=== PATIENT | male | born 1955 | race Caucasian/White ===

== ENCOUNTER 2017-05-11 14:30 | Outpatient (RCR) | payer OTHER, SELFPAY ==
[2017-05-04 14:49] VITALS: BP 141/74; PULSE 61; RESP 16; TEMP 36
[2017-05-04 17:38] LABS: Absolute Lymphocyte Count 1.75 X10^3/ul (0.83-4.51); Absolute Neutrophil Count 5.1 X10^3/uL (2.0-7.7); Basophil# 0.02 X10^3/uL; Basophil% 0.3 % (0-1); Eosinophil# 0.18 X10^3/uL; Eosinophils% 2.4 % (0-5); Hematocrit 47.9 % (40-54); Hemoglobin 16.2 g/dl (13.0-16.5); Lymphocyte # 1.75 X10^3/ul (4.0); Lymphocyte % 23.2 % (19-41); Mean Corp Hgb Conc 33.8 g/gl (32-36); Mean Corpuscular Hgb 28.9 pg (27.0-32.0); Mean Corpuscular Volume 85.4 fL (80-94); Mean Platelet Vol. 9.7 fl (6.2-12.0); Monocyte# 0.52 X10^3/uL; Monocyte% 6.9 % (0-10); Neutrophil # 5.07 X10^3/uL (2.7-7.7); Neutrophil % 67.1 % (47-70); Platelet Count 191 K/mm3 (150-450); RBC Distribution Width CV 14.4 % (11.6-14.6); RBC Distribution Width SD 44.8 fl (35.1-43.9); Red Blood Count 5.61 M/mm3 (4.6-6.2); White Blood Count 7.6 K/mm3 (4.4-11.0)
[2017-05-04 17:40] LABS: POSITIVE COUNT NO; POSITIVE DIFFERENTIAL NO; POSITIVE MORPHOLOGY NO
[2017-05-04 17:53] LABS: ALB/GLOB Ratio 0.9 RATIO (0.9-2.4); AST(SGOT) 34 U/L (15-37); Alanine Aminotransfer ALT/SGPT 36 U/L (12-78); Albumin, Serum 3.7 g/dL (3.4-5.0); Alkaline Phosphatase 297 U/L (45-117); Anion Gap 10 (5-15); BUN 21 mg/dL (7-18); BUN/Creat Ratio 25.6 RATIO (10-20); Calcium,Total 9.3 mg/dL (8.5-10.1); Chloride 98 mmol/L (98-107); Creatinine, Serum 0.82 mg/dL (0.70-1.30); EST Glomerular Filtration Rate 102 mL/min (>60); Est Glom Filt Rate - Afr Amer 123 mL/min (>60); Globulin 4.1 g/dL (2.2-4.2); Glucose 164 mg/dL (70-110); Potassium 3.3 mmol/L (3.5-5.1); Prealbumin 24.5 mg/dL (20.0-40.0); Protein, Total 7.8 g/dL (6.4-8.2); Sodium Level 136 mmol/L (136-145)
[2017-05-04 17:57] LABS: Hemoglobin A1c 9.7 % (4.2-6.3)
--- NOTE | 2017-05-04 22:11 | PCM.WC.HP ---
(1) Chronic ulcer of left foot with fat layer exposed Status: Chronic Code(s): L97.522 - Non-pressure chronic ulcer of other part of left foot with fat layer exposed (2) Hallux limitus of left foot Status: Chronic Code(s): M20.5X2 - Other deformities of toe(s) (acquired), left foot (3) Rheumatoid arthritis Status: Chronic Code(s): M06.9 - Rheumatoid arthritis, unspecified (4) Prostate cancer Status: Chronic Code(s): C61 - Malignant neoplasm of prostate (5) Delayed wound healing Status: Chronic Code(s): T14.8XXD - Other injury of unspecified body region, subsequent encounter (6) Malnutrition Status: Suspected Code(s): E46 - Unspecified protein-calorie malnutrition History of Present Illness Date of Service: 05/11/17 Chief Complaint: Left foot ulcer History of Wound: This 61-year-old male presents today for chronic left foot ulcer with an onset of 6 months ago (10/30). He denies sensation to the foot or associated pain. It is draining a clear bloody drainage. He is trying to keep it clean on his own at home. He recently saw a child and family counselor at [facility] was performed debridement, applied a wound VAC, offload the wound with a wedge forefoot rocker shoe and educated him on this condition. He was referred to the wound center for consideration of advanced product and additional workup. He had previous labs done over a month ago and had a recent x-ray performed at the [facility] approximately 1 week ago. He denies history of other ulcers. He denies claudication. He relates she does not walk very often and has been trying to stay seated at home to keep pressure off of his ulcer site. Past Medical History Past Medical History: Chronic Problems Chronic ulcer of left foot with fat layer exposed (Chronic) Hallux limitus of left foot (Chronic) Rheumatoid arthritis (Chronic) Prostate cancer (Chronic) Delayed wound healing (Chronic) Past Medical History: Prostate cancer with liver and sacral metastasis on chemotherapy, diabetes, rheumatoid arthritis on chronic prednisone, depression, hypercholesteremia. Other treating physicians: Dr. Vazquez, Dr. Olvera, Dr. Singh Surgical History: - - cataract extraction, colonoscopy, prostatectomy, removal of tonsils, vasectomy Allergies/Adverse Reactions: Allergies No Known Allergies Allergy (Verified 12/20/17 16:05) Home Medications: Ambulatory Orders Medication Instructions Recorded Calcium Carb/Vitamin D3/Vit K1 05/04/17 [Citracal Soft Chew] Empagliflozin [Jardiance] 10 mg PO 05/04/17 Glipizide/Metformin HCl 1 each PO 05/04/17 [Glipizide-Metformin 5-500 mg] Ibuprofen 200 mg PO 05/04/17 Multivitamin [Multiple Vitamins] 1 each PO DAILY 05/04/17 Prednisone 5 mg PO 05/04/17 Rosuvastatin Calcium [Crestor] 20 mg PO 05/04/17 Venlafaxine XR [Effexor Xr] 75 mg PO DAILY 05/04/17 Lives: Spouse/ Significant Other Review of Systems Constitutional: Denies: Chills, Fever, Fatigue Eyes: Reports: Vision Change Cardiovascular: Denies: Chest Pain, Claudication Respiratory: Denies: Shortness of Breath Gastrointestinal: Denies: Nausea, Vomiting Genitourinary: Reports: Incontinence, Urgency Musculoskeletal: Denies: Foot Pain, Joint swelling, Leg Pain Skin: Reports: Skin Changes, Wounds Neurological: Reports: Numbness Hematologic/ Lymphatic: Reports: Hx of blood clot - Physical Exam Vital Signs Temp Pulse Resp BP 96.8 F L 61 16 141/74 H 05/04/17 14:49 05/04/17 14:49 05/04/17 14:49 05/04/17 14:49 General: Alert, Oriented x3, Cooperative HEENT: Atraumatic Extremities: No edema, Capillary Refill Less than 3 Seconds - All digits bilateral foot, No Calf Tenderness - Negative Mingo and Garcia sign bilateral, Diminished Peripheral Pulses Skin: Ulcer/ Wound - Some first metatarsal head ulcer with granular base and peripheral callus. There is no probe to the sesamoid bones or other joints. Her sinus drainage is noted. No maceration, no erythema, no streaking, no infection, no necrosis noted left foot. Otherwise his skin is atrophic care with bilateral lower extremity Wound Measurements and Assessment WC - Nurse 1 - General Ulcer Measurement Start: 05/04/17 13:42 Freq: Status: Active Protocol: Activity Type Activity Date Activity User E-Sign Co-Sign Detail Recorded Client Recorded Date Recorded By Document 05/04/17 14:49 DV [id number] 05/04/17 15:13 DV 05/04/17 14:49 Wound Center Nurse 1 [Ulcer Assessment Protocol: WC.WD.LOC] #1 1st Metatarsal Head - Plantar -Combined with other wound No -Current Size (cm) - Length 1.0 -Current Size (cm) - Width 1.0 -Current Size (cm) - Depth 0.7 -Total Square Cm 1.00 -Date of Last Picture (Recall this 05/04/17 field) -Photo Taken Yes -Tunneling No -Undermining/Tunneling No -Circular Undermining No -Classification - Stark Grading ( Grade 2 Diabetic Ulcer) -Exudate Amt Small (1-33%) -Exudate Type Serous -Wound Margin Distinct, Outline Attached -Granulation Amt Small (1-33%) -Granulation Quality Red -Slough/Fibrin Yes -Necrosis Amt Medium (34-66%) -Necrotic Tissue Type Adherent Slough -Structure Exposed None/Limited to Skin Breakdown -Texture (Mar-wound Skin Appearance) No Abnormality Assessed -Moisture (Mar-wound Skin Appearance No Abnormality ) Assessed -Color (Mar-wound Skin Appearance) No Abnormality Assessed -Temperature (Mar-wound Skin Cool/Cold Appearance) -Tenderness on Palpation (Mar-wound No Skin Appearance) -Ulcer Cleansing Rinsed/ Irrigated with Saline -Foul Odor after Cleansing No -Anesthetic Used 5% Lidocaine Gel [Edema Assessment] -Lower Limb Edema Present No - Nurse 2 - General Ulcer CM Notes Start: 05/04/17 13:42 Freq: Status: Active Protocol: Activity Type Activity Date Activity User E-Sign Co-Sign Detail Recorded Client Recorded Date Recorded By Document 05/04/17 15:39 [id number] 05/04/17 16:22 05/04/17 15:39 Wound Center Nurse 2 [Procedure/Treatment] #1 1st Metatarsal Head - Plantar -Time 15:54 -Correct Patient Yes -Correct Side, Site, Position Yes -Correct Procedure Yes -Procedure Performed Yes -Type of Procedure Debridement -Clinical Debridement Subcutaneous -Post Debridement Size (cm) - Length 1.1 -Post Debridement Size (cm) - Width 1.5 -Post Debridement Size (cm) - Depth 1.0 -Total Square Cm 1.65 -Wound/Ulcer Outcome Not Healed -Ulcer Cleansing Rinsed/ Irrigated with Saline -Foul Odor after Cleansing No -Bioengineered Tissue No -Cetacaine Maurepas No -Topical Lidocaine (%) 5 -Bleeding Controlled with Pressure -Treatment Response Procedure Tolerated Well [See Physician Procedure note for Specifics] Pain Scale: 0-10 Numeric [Pain] -Is Patient Pain Free? Yes Musculoskeletal: No Tenderness to Palpation of Joints or Extremities, Muscle Wasting, - - Decreased loaded and unloaded range of motion of the first metatarsal phalangeal joint of the left foot. No crepitus on palpation. The compartments of the left foot and ankle remain soft. Neurological: - - Lack of epicritic sensation to light touch noted left foot Psych/Mental Status: Normal Affect, Appropriate Debridement Note Post-Debridement Measurements/Treatment WC - Nurse 2 - General Ulcer CM Notes Start: 05/04/17 13:42 Freq: Status: Active Protocol: Activity Type Activity Date Activity User E-Sign Co-Sign Detail Recorded Client Recorded Date Recorded By Document 05/04/17 15:39 [id number] 05/04/17 16:22 05/04/17 15:39 Wound Center Nurse 2 #1 1st Metatarsal Head - Plantar -Time 15:54 -Correct Patient Yes -Correct Side, Site, Position Yes -Correct Procedure Yes -Procedure Performed Yes -Type of Procedure Debridement -Clinical Debridement Subcutaneous -Post Debridement Size (cm) - Length 1.1 -Post Debridement Size (cm) - Width 1.5 -Post Debridement Size (cm) - Depth 1.0 -Total Square Cm 1.65 -Wound/Ulcer Outcome Not Healed -Ulcer Cleansing Rinsed/ Irrigated with Saline -Foul Odor after Cleansing No -Bioengineered Tissue No -Cetacaine Maurepas No -Topical Lidocaine (%) 5 -Bleeding Controlled with Pressure -Treatment Response Procedure Tolerated Well Pain Scale: 0-10 Numeric Is Patient Pain Free? Yes Wound debrided: Sub-first metatarsal head ulcer Laterality: Left Wound Grade/Stage: Grade 1 Type of Debridement: Excisional debridement Anesthesia Used: 4% Lidocaine Solution Depth: in the subcutaneous layer Percentage of wound debrided: 100 Instrument Used: #15 blade Tissue Removed: Fibrous, devitalized subcutaneous, biofilm, slough Severity: Fat Layer Exposed Amount of bleeding with debridement: Mild Bleeding Controlled with: Pressure Patient tolerated procedure well Assessment/Plan Assessment: Sub-first metatarsal head ulcer left foot. Diabetes. Delayed healing. Cancer undergoing current therapy. Hallux limitus left Plan: I reviewed and discussed his care plan. I reviewed his previous podiatry notes with clinical clinic. I requested his most recent x-ray images from the [facility] via mail and it is noted that his most recent x-ray report is not just osteomyelitis changes to left foot. This was reviewed from 04/26/17; serial films will be needed next month or if there is a status change. Labs including CMP and CBC are ordered and pending. The wound is chronic in nature and I recommended tissue culture at this time; this was obtained including aerobic, anaerobic, acid-fast, fungal, and MRSA PCR. To continue with wound VAC at this time to decrease depth. He changed to a collagen dressing and likely advanced wound care product such as epi-fix will be considered upon preauthorization and healing response. Strict offloading was recommended. I recommend continuing the forefoot wedge offloading shoe. An additional pocket cut out was fabricated today in the minor with the addition of the felt padding with an additional cut out; this lined up well to offload the ulcer site. To avoid barefoot walking at home. I recommended continuous nutritional optimization to promote healing. A prescription for David nutritional supplement was also provided today. Neutrophil healing resulting time were discussed in detail. He understands he is at risk for limb loss. I answered all of his questions. Return to clinic in 1 week or call sooner if he has any questions or concerns.
[2017-05-05 10:09] LABS: M R Staph aureus DNA By PCR Negative (Negative); Probe Check PASS; Specimen Processing Control PASS; Staph aureus DNA By PCR NEGATIVE (Negative)
[2017-05-11 14:02] VITALS: BP 119/69; PULSE 75; RESP 16; TEMP 35.4
--- NOTE | 2017-05-11 18:19 | PCM.WC.PN ---
(1) Chronic ulcer of left foot with fat layer exposed Status: Chronic Current Visit: No Code(s): L97.522 - Non-pressure chronic ulcer of other part of left foot with fat layer exposed (2) Hallux limitus of left foot Status: Chronic Current Visit: No Code(s): M20.5X2 - Other deformities of toe(s) (acquired), left foot (3) Rheumatoid arthritis Status: Chronic Current Visit: No Code(s): M06.9 - Rheumatoid arthritis, unspecified (4) Prostate cancer Status: Chronic Current Visit: No Code(s): C61 - Malignant neoplasm of prostate (5) Delayed wound healing Status: Chronic Current Visit: No Code(s): T14.8XXD - Other injury of unspecified body region, subsequent encounter (6) Malnutrition Status: Suspected Current Visit: No Code(s): E46 - Unspecified protein-calorie malnutrition (7) Infection of left foot Status: Suspected Current Visit: Yes Code(s): L08.9 - Local infection of the skin and subcutaneous tissue, unspecified Type of Wound Date of Service: 05/11/17 Chief Complaint: Left foot ulcer History of Wound: This 61-year-old male presents today for chronic left foot ulcer with an onset of 6 months ago (10/30). He has been compliant with the wound VAC this past week. He denies fever, chill, nausea, vomiting, or foot pain. He is compliant with an offloading forefoot wedge shoe. He obtained vascular studies is advised. Progress of Wound: Stable - Physical Exam Vital Signs Temp Pulse Resp BP 95.7 F L 75 16 119/69 05/11/17 14:02 05/11/17 14:02 05/11/17 14:02 05/11/17 14:02 General: Alert, Oriented x3, Cooperative Extremities: No cyanosis, Capillary Refill Less than 3 Seconds - All digits left foot, No Calf Tenderness - Negative Mingo and Garcia sign bilateral, Diminished Peripheral Pulses - Palpable DP pulse left, - - Decreased first metatarsophalangeal joint passive range of motion loaded and unloaded left foot Skin: Ulcer/ Wound - No purulence, no erythema, no streaking, no odor, no probe to bone, no necrosis, no acute infection. There is a scant odor. The base is granular and with peripheral callus. The adjacent skin is atrophic and hairless. Wound Measurements and Assessment - Nurse 1 - General Ulcer Measurement Start: 05/04/17 13:42 Freq: Status: Active Protocol: Activity Type Activity Date Activity User E-Sign Co-Sign Detail Recorded Client Recorded Date Recorded By Document 05/11/17 14:02 MW [id number] 05/11/17 14:12 MW 05/11/17 14:02 Wound Center Nurse 1 [Ulcer Assessment Protocol: KAVITA.WD.LOC] #3 Left: 1st Metatarsal Head - Plantar -Combined with other wound No -Current Size (cm) - Length 1.0 -Current Size (cm) - Width 1.4 -Current Size (cm) - Depth 0.7 -Total Square Cm 1.40 -Photo Taken No -Epithelialization None Present -Tunneling No -Undermining/Tunneling No -Circular Undermining No -Exudate Amt Small (1-33%) -Exudate Type Serosanguineous -Wound Margin Distinct, Outline Attached -Granulation Amt Small (1-33%) -Granulation Quality [place] -Slough/Fibrin Yes -Necrosis Amt Medium (34-66%) -Necrotic Tissue Type Adherent Slough -Structure Exposed N/A -Texture (Mar-wound Skin Appearance) No Abnormality Assessed -Moisture (Mar-wound Skin Appearance Assessed ) Maceration -Color (Mar-wound Skin Appearance) No Abnormality Assessed -Temperature (Mar-wound Skin No Abnormality Appearance) (Pt Warm) -Tenderness on Palpation (Mar-wound No Skin Appearance) -Ulcer Cleansing Rinsed/ Irrigated with Saline -Foul Odor after Cleansing No -Anesthetic Used 4% Lidocaine Solution [Edema Assessment] -Lower Limb Edema Present No - Nurse 2 - General Ulcer CM Notes Start: 05/04/17 13:42 Freq: Status: Active Protocol: Activity Type Activity Date Activity User E-Sign Co-Sign Detail Recorded Client Recorded Date Recorded By Document 05/11/17 14:35 [id number] 05/11/17 14:35 05/11/17 14:35 Wound Center Nurse 2 [Procedure/Treatment] #3 Left: 1st Metatarsal Head - Plantar -Time 14:35 -Correct Patient Yes -Correct Side, Site, Position Yes -Correct Procedure Yes -Procedure Performed Yes -Type of Procedure Debridement -Clinical Debridement Subcutaneous -Post Debridement Size (cm) - Length 1.0 -Post Debridement Size (cm) - Width 1.5 -Post Debridement Size (cm) - Depth 0.7 -Total Square Cm 1.50 -Wound/Ulcer Outcome Not Healed -Ulcer Cleansing Rinsed/ Irrigated with Saline -Foul Odor after Cleansing No -Bioengineered Tissue No -Cetacaine [place] No -Bleeding Controlled with Pressure -Treatment Response Procedure Tolerated Well [See Physician Procedure note for Specifics] Pain Scale: 0-10 Numeric [Pain] -Is Patient Pain Free? Yes Musculoskeletal: No Tenderness to Palpation of Joints or Extremities, Muscle Wasting, - - No pain with wound manipulation or debridement Neurological: - - Lack of epicritic sensation to light touch left foot Psych/Mental Status: Normal Affect, Appropriate Debridement Note Post-Debridement Measurements/Treatment WC - Nurse 2 - General Ulcer CM Notes Start: 05/04/17 13:42 Freq: Status: Active Protocol: Activity Type Activity Date Activity User E-Sign Co-Sign Detail Recorded Client Recorded Date Recorded By Document 05/04/17 15:39 [id number] 05/04/17 16:22 Document 05/11/17 14:35 [id number] 05/11/17 14:35 05/04/17 05/11/17 15:39 14:35 Wound Center Nurse 2 #3 Left: 1st Metatarsal Head - Plantar -Time 15:54 14:35 -Correct Patient Yes Yes -Correct Side, Site, Position Yes Yes -Correct Procedure Yes Yes -Procedure Performed Yes Yes -Type of Procedure Debridement Debridement -Clinical Debridement Subcutaneous Subcutaneous -Post Debridement Size (cm) - Length 1.1 1.0 -Post Debridement Size (cm) - Width 1.5 1.5 -Post Debridement Size (cm) - Depth 1.0 0.7 -Total Square Cm 1.65 1.50 -Wound/Ulcer Outcome Not Healed Not Healed -Ulcer Cleansing Rinsed/ Rinsed/ Irrigated with Irrigated with Saline Saline -Foul Odor after Cleansing No No -Bioengineered Tissue No No -Cetacaine [place]or No No -Topical Lidocaine (%) 5 -Bleeding Controlled with Pressure Pressure -Treatment Response Procedure Procedure Tolerated Well Tolerated Well Pain Scale: 0-10 Numeric Is Patient Pain Free? Yes Yes Wound debrided: Sub-first metatarsal head Laterality: Left Wound Grade/Stage: Grade 1 Type of Debridement: Excisional debridement Anesthesia Used: 4% Lidocaine Solution Depth: in the subcutaneous layer Percentage of wound debrided: 100 Instrument Used: 7mm curette Tissue Removed: Fibrous, devitalized subcutaneous, biofilm, slough Severity: Fat Layer Exposed Amount of bleeding with debridement: Mild Bleeding Controlled with: Pressure Patient tolerated procedure well Assessment/Plan Assessment: Sub-first metatarsal head ulcer left foot. Contamination versus mild infection left foot. Diabetes. Delayed healing. Cancer undergoing current therapy. Hallux limitus left. Malnutrition suspected Plan: I reviewed and discussed his care plan. Serial x-ray films and laboratory tests will be needed next month or if there is a status change. I reviewed his noninvasive vascular studies which demonstrated triphasic waveforms, normal CEDRIC and toe brachial indices bilateral. I reviewed his culture results which demonstrated staph, strep, and Pseudomonas. I recommend daily Hibiclens wash to the lower extremity including the wound; this is demonstrated today to assist with decolonization which could be impeding healing. I also provided a 14 day supply of Augmentin to address this ; he was advised on safe and proper use. To discontinue wound VAC. He changed to a collagen dressing (saman) and likely advanced wound care product such as epi-fix will be considered upon preauthorization and healing response. Strict offloading was recommended. I recommend continuing the forefoot wedge offloading shoe. To avoid barefoot walking at home. I recommended continuous nutritional optimization to promote healing. A prescription for David nutritional supplement was also provided last week. Return to clinic in 1 week or call sooner if he has any questions or concerns. I answered all of his questions.
--- NOTE | 2017-05-11 18:26 | PN.PCM_ITS ---
(1) Chronic ulcer of left foot with fat layer exposed Status: Chronic Current Visit: No Code(s): L97.522 - Non-pressure chronic ulcer of other part of left foot with fat layer exposed (2) Hallux limitus of left foot Status: Chronic Current Visit: No Code(s): M20.5X2 - Other deformities of toe(s) (acquired), left foot (3) Rheumatoid arthritis Status: Chronic Current Visit: No Code(s): M06.9 - Rheumatoid arthritis, unspecified (4) Prostate cancer Status: Chronic Current Visit: No Code(s): C61 - Malignant neoplasm of prostate (5) Delayed wound healing Status: Chronic Current Visit: No Code(s): T14.8XXD - Other injury of unspecified body region, subsequent encounter (6) Malnutrition Status: Suspected Current Visit: No Code(s): E46 - Unspecified protein- calorie malnutrition (7) Infection of left foot Status: Suspected Current Visit: Yes Code(s): L08.9 - Local infection of the skin and subcutaneous tissue, unspecified Type of Wound Date of Service: 05/11/17 Chief Complaint: Left foot ulcer History of Wound: This 61-year-old male presents today for chronic left foot ulcer with an onset of 6 months ago (10/30). He has been compliant with the wound VAC this past week. He denies fever, chill, nausea, vomiting, or foot pain. He is compliant with an offloading forefoot wedge shoe. He obtained vascular studies is advised. Progress of Wound: Stable - Physical Exam Vital Signs Temp Pulse Resp BP 95.7 F L 75 16 119/69 05/11/17 14:02 05/11/17 14:02 05/11/17 14:02 05/11/17 14:02 General: Alert, Oriented x3, Cooperative Extremities: No cyanosis, Capillary Refill Less than 3 Seconds - All digits left foot, No Calf Tenderness - Negative Mingo and Garcia sign bilateral, Diminished Peripheral Pulses - Palpable DP pulse left, - - Decreased first metatarsophalangeal joint passive range of motion loaded and unloaded left foot Skin: Ulcer/ Wound - No purulence, no erythema, no streaking, no odor, no probe to bone, no necrosis, no acute infection. There is a scant odor. The base is granular and with peripheral callus. The adjacent skin is atrophic and hairless. Wound Measurements and Assessment - Nurse 1 - General Ulcer Measurement Start: 05/04/17 13:42 Freq: Status: Active Protocol: Activity Type Activity Date Activity User E-Sign Co-Sign Detail Recorded Client Recorded Date Recorded By Document 05/11/17 14:02 MW [id number] 05/11/17 14:12 MW 05/11/17 14:02 Wound Center Nurse 1 [Ulcer Assessment Protocol: AKVITA.WD.LOC] #3 Left: 1st Metatarsal Head - Plantar -Combined with other wound No -Current Size (cm) - Length 1.0 -Current Size (cm) - Width 1.4 -Current Size (cm) - Depth 0.7 -Total Square Cm 1.40 -Photo Taken No -Epithelialization None Present -Tunneling No -Undermining/Tunneling No -Circular Undermining No -Exudate Amt Small (1-33%) -Exudate Type Serosanguineous -Wound Margin Distinct, Outline Attached -Granulation Amt Small (1-33%) -Granulation Quality [place] -Slough/Fibrin Yes -Necrosis Amt Medium (34-66%) -Necrotic Tissue Type Adherent Slough -Structure Exposed N/A -Texture (Mar-wound Skin Appearance) No Abnormality Assessed -Moisture (Mar-wound Skin Appearance Assessed ) Maceration -Color (Mar-wound Skin Appearance) No Abnormality Assessed -Temperature (Mar-wound Skin No Abnormality Appearance) (Pt Warm) -Tenderness on Palpation (Mar-wound No Skin Appearance) -Ulcer Cleansing Rinsed/ Irrigated with Saline -Foul Odor after Cleansing No -Anesthetic Used 4% Lidocaine Solution [Edema Assessment] -Lower Limb Edema Present No - Nurse 2 - General Ulcer CM Notes Start: 05/04/17 13:42 Freq: Status: Active Protocol: Activity Type Activity Date Activity User E-Sign Co-Sign Detail Recorded Client Recorded Date Recorded By Document 05/11/17 14:35 [id number] 05/11/17 14:35 05/11/17 14:35 Wound Center Nurse 2 [Procedure/Treatment] #3 Left: 1st Metatarsal Head - Plantar -Time 14:35 -Correct Patient Yes -Correct Side, Site, Position Yes -Correct Procedure Yes -Procedure Performed Yes -Type of Procedure Debridement -Clinical Debridement Subcutaneous -Post Debridement Size (cm) - Length 1.0 -Post Debridement Size (cm) - Width 1.5 -Post Debridement Size (cm) - Depth 0.7 -Total Square Cm 1.50 -Wound/Ulcer Outcome Not Healed -Ulcer Cleansing Rinsed/ Irrigated with Saline -Foul Odor after Cleansing No -Bioengineered Tissue No -Cetacaine [place] No -Bleeding Controlled with Pressure -Treatment Response Procedure Tolerated Well [See Physician Procedure note for Specifics] Pain Scale: 0-10 Numeric [Pain] -Is Patient Pain Free? Yes Musculoskeletal: No Tenderness to Palpation of Joints or Extremities, Muscle Wasting, - - No pain with wound manipulation or debridement Neurological: - - Lack of epicritic sensation to light touch left foot Psych/Mental Status: Normal Affect, Appropriate Debridement Note Post-Debridement Measurements/Treatment WC - Nurse 2 - General Ulcer CM Notes Start: 05/04/17 13:42 Freq: Status: Active Protocol: Activity Type Activity Date Activity User E-Sign Co-Sign Detail Recorded Client Recorded Date Recorded By Document 05/04/17 15:39 [id number] 05/04/17 16:22 Document 05/11/17 14:35 [id number] 05/11/17 14:35 05/04/17 05/11/17 15:39 14:35 Wound Center Nurse 2 #3 Left: 1st Metatarsal Head - Plantar -Time 15:54 14:35 -Correct Patient Yes Yes -Correct Side, Site, Position Yes Yes -Correct Procedure Yes Yes -Procedure Performed Yes Yes -Type of Procedure Debridement Debridement -Clinical Debridement Subcutaneous Subcutaneous -Post Debridement Size (cm) - Length 1.1 1.0 -Post Debridement Size (cm) - Width 1.5 1.5 -Post Debridement Size (cm) - Depth 1.0 0.7 -Total Square Cm 1.65 1.50 -Wound/Ulcer Outcome Not Healed Not Healed -Ulcer Cleansing Rinsed/ Rinsed/ Irrigated with Irrigated with Saline Saline -Foul Odor after Cleansing No No -Bioengineered Tissue No No -Cetacaine [place] No No -Topical Lidocaine (%) 5 -Bleeding Controlled with Pressure Pressure -Treatment Response Procedure Procedure Tolerated Well Tolerated Well Pain Scale: 0-10 Numeric Is Patient Pain Free? Yes Yes Wound debrided: Sub-first metatarsal head Laterality: Left Wound Grade/Stage: Grade 1 Type of Debridement: Excisional debridement Anesthesia Used: 4% Lidocaine Solution Depth: in the subcutaneous layer Percentage of wound debrided: 100 Instrument Used: 7mm curette Tissue Removed: Fibrous, devitalized subcutaneous, biofilm, slough Severity: Fat Layer Exposed Amount of bleeding with debridement: Mild Bleeding Controlled with: Pressure Patient tolerated procedure well Assessment/Plan Assessment: Sub-first metatarsal head ulcer left foot. Contamination versus mild infection left foot. Diabetes. Delayed healing. Cancer undergoing current therapy. Hallux limitus left. Malnutrition suspected Plan: I reviewed and discussed his care plan. Serial x-ray films and laboratory tests will be needed next month or if there is a status change. I reviewed his noninvasive vascular studies which demonstrated triphasic waveforms, normal CEDRIC and toe brachial indices bilateral. I reviewed his culture results which demonstrated staph, strep, and Pseudomonas. I recommend daily Hibiclens wash to the lower extremity including the wound; this is demonstrated today to assist with decolonization which could be impeding healing. I also provided a 14 day supply of Augmentin to address this ; he was advised on safe and proper use. To discontinue wound VAC. He changed to a collagen dressing (saman) and likely advanced wound care product such as epi- fix will be considered upon preauthorization and healing response. Strict offloading was recommended. I recommend continuing the forefoot wedge offloading shoe. To avoid barefoot walking at home. I recommended continuous nutritional optimization to promote healing. A prescription for David nutritional supplement was also provided last week. Return to clinic in 1 week or call sooner if he has any questions or concerns. I answered all of his questions.
--- NOTE | 2017-05-16 09:41 | LEAS ---
Arterial Study - Arterial Study Arterial Study: This is a 61-year-old male who presents with a history of diabetes mellitus and hyperlipidemia. He presents with a chronic nonhealing ulcer to the left lower extremity. Suspecting the presence of peripheral arterial occlusive disease, the patient was brought to the noninvasive vascular laboratory at this time for the purpose of bilateral noninvasive lower extremity arterial assessment. Doppler signal assessment was used to evaluate the pulses at ankle level bilaterally. The posterior tibial and dorsalis pedis pulses were triphasic bilaterally. Segmental limb pressures were obtained bilaterally. The right ankle pressure, as determined by posterior tibial pulse, was measured at 163 mmHg. The right ankle pressure, as determined by dorsalis pedis pulse, was measured at 169 mmHg. The right digital pressure was measured at 102 mmHg. The left ankle pressure, as determined by posterior tibial pulse, was measured at 169 mmHg. The left ankle pressure, as determined by dorsalis pedis pulse, was measured at 174 mmHg. The left digital pressure was measured at 115 mmHg. Pulse-volume recordings were obtained bilaterally and segmentally. Waveform amplitudes appeared to be satisfactory at all levels bilaterally, including low thigh, calf, ankle, and digital levels, but for the right digital level, which was slightly diminished. Resting ankle-brachial indices were calculated bilaterally. The resting right ankle-brachial index was calculated to be 1.20. The resting left ankle-brachial index was calculated to be 1.23. Digital-brachial indices were calculated bilaterally. The right digital-brachial index was calculated to be 0.72. The left digital-brachial index was calculated to be 0.82. Impression: Based upon the findings of this resting noninvasive left lower extremity arterial study, there is no evidence of significant atherosclerotic peripheral arterial occlusive disease in the lower extremities bilaterally. Triphasic waveforms were noted at ankle level bilaterally. Resting ankle-brachial indices were bilaterally normal. Digital-brachial indices were also normal bilaterally. In summary, this represents a relatively normal resting noninvasive lower extremity arterial study bilaterally.
--- NOTE | 2017-05-16 09:44 | LEAS_ITS ---
Arterial Study - Arterial Study Arterial Study: This is a 61-year-old male who presents with a history of diabetes mellitus and hyperlipidemia. He presents with a chronic nonhealing ulcer to the left lower extremity. Suspecting the presence of peripheral arterial occlusive disease, the patient was brought to the noninvasive vascular laboratory at this time for the purpose of bilateral noninvasive lower extremity arterial assessment. Doppler signal assessment was used to evaluate the pulses at ankle level bilaterally. The posterior tibial and dorsalis pedis pulses were triphasic bilaterally. Segmental limb pressures were obtained bilaterally. The right ankle pressure, as determined by posterior tibial pulse, was measured at 163 mmHg. The right ankle pressure, as determined by dorsalis pedis pulse, was measured at 169 mmHg. The right digital pressure was measured at 102 mmHg. The left ankle pressure, as determined by posterior tibial pulse, was measured at 169 mmHg. The left ankle pressure, as determined by dorsalis pedis pulse, was measured at 174 mmHg. The left digital pressure was measured at 115 mmHg. Pulse-volume recordings were obtained bilaterally and segmentally. Waveform amplitudes appeared to be satisfactory at all levels bilaterally, including low thigh, calf, ankle, and digital levels, but for the right digital level, which was slightly diminished. Resting ankle-brachial indices were calculated bilaterally. The resting right ankle-brachial index was calculated to be 1.20. The resting left ankle- brachial index was calculated to be 1.23. Digital-brachial indices were calculated bilaterally. The right digital- brachial index was calculated to be 0.72. The left digital-brachial index was calculated to be 0.82. Impression: Based upon the findings of this resting noninvasive left lower extremity arterial study, there is no evidence of significant atherosclerotic peripheral arterial occlusive disease in the lower extremities bilaterally. Triphasic waveforms were noted at ankle level bilaterally. Resting ankle- brachial indices were bilaterally normal. Digital-brachial indices were also normal bilaterally. In summary, this represents a relatively normal resting noninvasive lower extremity arterial study bilaterally.
== END 2017-05-15 23:59 ==
LOC: WC 14:30
PROVIDERS: Family Provider Family Medicine; PCP Family Medicine; Visit Provider Podiatrist
DX: E11.621 Type 2 diabetes mellitus with foot ulcer (principal); E11.42 Type 2 diabetes mellitus with diabetic polyneuropathy; L97.522 Non-pressure chronic ulcer of other part of left foot with fat layer exposed; M20.5X2 Other deformities of toe(s) (acquired), left foot; M06.9 Rheumatoid arthritis, unspecified; R09.89 Other specified symptoms and signs involving the circulatory and respiratory systems; C61 Malignant neoplasm of prostate; C78.7 Secondary malignant neoplasm of liver and intrahepatic bile duct; C79.51 Secondary malignant neoplasm of bone; E78.00 Pure hypercholesterolemia, unspecified; Z79.52 Long term (current) use of systemic steroids; Z79.899 Other long term (current) drug therapy; Z79.84 Long term (current) use of oral hypoglycemic drugs; L84 Corns and callosities; E11.51 Type 2 diabetes mellitus with diabetic peripheral angiopathy without gangrene; B95.4 Other streptococcus as the cause of diseases classified elsewhere; B96.5 Pseudomonas (aeruginosa) (mallei) (pseudomallei) as the cause of diseases classified elsewhere; L08.9 Local infection of the skin and subcutaneous tissue, unspecified
CPT/HCPCS: 11042; 80053; 83036; 84134; 85025; 87070; 87075; 87077; 87186; 87205; 87640; 93923; 97605; 99203; G0463

== ENCOUNTER 2017-06-08 14:30 | Outpatient (RCR) | payer OTHER, SELFPAY ==
[2017-05-16 01:40] VITALS: BP 119/69; PULSE 75; RESP 16; TEMP 35.4
[2017-05-18 14:04] VITALS: BP 147/74; PULSE 77; RESP 16; TEMP 35.2
--- NOTE | 2017-05-18 16:07 | PCM.WC.PN ---
(1) Type 2 diabetes mellitus with diabetic polyneuropathy Status: Acute Current Visit: Yes Code(s): E11.42 - Type 2 diabetes mellitus with diabetic polyneuropathy (2) Chronic ulcer of left foot with fat layer exposed Status: Chronic Current Visit: Yes Code(s): L97.522 - Non-pressure chronic ulcer of other part of left foot with fat layer exposed (3) Hallux limitus of left foot Status: Chronic Current Visit: Yes Code(s): M20.5X2 - Other deformities of toe(s) (acquired), left foot (4) Rheumatoid arthritis Status: Chronic Current Visit: Yes Code(s): M06.9 - Rheumatoid arthritis, unspecified (5) Delayed wound healing Status: Chronic Current Visit: Yes Code(s): T14.8XXD - Other injury of unspecified body region, subsequent encounter (6) Malnutrition Status: Suspected Current Visit: Yes Code(s): E46 - Unspecified protein-calorie malnutrition Type of Wound Date of Service: 05/18/17 Chief Complaint: Left foot ulcer History of Wound: This 61-year-old male presents today for chronic left foot ulcer with an onset of 10/30. He denies fever, chill, nausea, vomiting, or foot pain. He is compliant with an offloading forefoot wedge shoe. He continues on antibiotics as recommended. He is planning to travel to [place] for 1 month in June. He is considering if he is amenable to go through with hyperbaric oxygen therapy screening and treatment. Progress of Wound: Stable - Physical Exam Vital Signs Temp Pulse Resp BP 95.3 F L 77 16 147/74 H 05/18/17 14:04 05/18/17 14:04 05/18/17 14:04 05/18/17 14:04 General: Alert, Oriented x3, Cooperative Extremities: No cyanosis, Capillary Refill Less than 3 Seconds, Diminished Peripheral Pulses, Edema Skin: Ulcer/ Wound - No maceration, no erythema, no streaking. There is exposed capsular muscle tissue noted in this wound bed this is now considered a grade 3 diabetic foot ulcer. There is no exposed bone. There is no purulence on expression or lukasz necrosis. The face is fibrous, granular, and devitalized. Wound Measurements and Assessment WC - Nurse 1 - General Ulcer Measurement Start: 05/18/17 14:04 Freq: Status: Active Protocol: Activity Type Activity Date Activity User E-Sign Co-Sign Detail Recorded Client Recorded Date Recorded By Document 05/18/17 14:04 [email or web address] [id number] 05/18/17 14:09 DAPHNE 05/18/17 14:04 Wound Center Nurse 1 [Ulcer Assessment Protocol: WC.WD.LOC] #3 Left: 1st Metatarsal Head - Plantar -Combined with other wound No -Current Size (cm) - Length 1.0 -Current Size (cm) - Width 1.0 -Current Size (cm) - Depth 1.0 -Total Square Cm 1.00 -Photo Taken No -Epithelialization None Present -Tunneling No -Undermining/Tunneling No -Circular Undermining Yes -Exudate Amt Large (67-100%) -Exudate Type Serosanguineous -Wound Margin Distinct, Outline Attached -Granulation Amt None Present (0 %) -Granulation Quality N/A -Slough/Fibrin Yes -Necrosis Amt Medium (34-66%) -Necrotic Tissue Type Adherent Slough -Texture (Mar-wound Skin Appearance) Assessed Scarring -Moisture (Mar-wound Skin Appearance Assessed ) Maceration Weeping -Color (Mar-wound Skin Appearance) No Abnormality Assessed -Temperature (Mar-wound Skin No Abnormality Appearance) (Pt Warm) -Ulcer Cleansing Rinsed/ Irrigated with Saline -Foul Odor after Cleansing No -Anesthetic Used 5% Lidocaine Gel - Nurse 2 - General Ulcer CM Notes Start: 05/18/17 14:04 Freq: Status: Active Protocol: Activity Type Activity Date Activity User E-Sign Co-Sign Detail Recorded Client Recorded Date Recorded By Document 05/18/17 14:22 [email or web address] [id number] 05/18/17 14:24 05/18/17 14:22 Wound Center Nurse 2 [Procedure/Treatment] -Time 14:24 -Correct Patient Yes -Correct Side, Site, Position Yes -Correct Procedure Yes -Procedure Performed Yes -Type of Procedure Debridement -Clinical Debridement Subcutaneous -Post Debridement Size (cm) - Length 1.1 -Post Debridement Size (cm) - Width 1.1 -Post Debridement Size (cm) - Depth 1.0 -Total Square Cm 1.21 -Wound/Ulcer Outcome Not Healed -Ulcer Cleansing Rinsed/ Irrigated with Saline -Foul Odor after Cleansing No -Bioengineered Tissue No -Cetacaine [place] No -Bleeding Controlled with Pressure -Treatment Response Procedure Tolerated Well [See Physician Procedure note for Specifics] Pain Scale: 0-10 Numeric [Pain] -Is Patient Pain Free? Yes Musculoskeletal: No Tenderness to Palpation of Joints or Extremities, Muscle Wasting, - - Lack of passive range of motion of first metatarsal phalangeal joint noted foot left Neurological: - - Lack of sensation to light touch bilateral foot Psych/Mental Status: Normal Affect, Appropriate Debridement Note Post-Debridement Measurements/Treatment WC - Nurse 2 - General Ulcer CM Notes Start: 05/18/17 14:04 Freq: Status: Active Protocol: Activity Type Activity Date Activity User E-Sign Co-Sign Detail Recorded Client Recorded Date Recorded By Document 05/18/17 14:22 [id number] 05/18/17 14:24 [email or web address] 05/18/17 14:22 Wound Center Nurse 2 #3 Left: 1st Metatarsal Head - Plantar -Time 14:24 -Correct Patient Yes -Correct Side, Site, Position Yes -Correct Procedure Yes -Procedure Performed Yes -Type of Procedure Debridement -Clinical Debridement Subcutaneous -Post Debridement Size (cm) - Length 1.1 -Post Debridement Size (cm) - Width 1.1 -Post Debridement Size (cm) - Depth 1.0 -Total Square Cm 1.21 -Wound/Ulcer Outcome Not Healed -Ulcer Cleansing Rinsed/ Irrigated with Saline -Foul Odor after Cleansing No -Bioengineered Tissue No -Cetacaine [place] No -Bleeding Controlled with Pressure -Treatment Response Procedure Tolerated Well Pain Scale: 0-10 Numeric Is Patient Pain Free? Yes Wound debrided: First metatarsal head Wound Grade/Stage: Grade 3 Type of Debridement: Excisional debridement Anesthesia Used: 4% Lidocaine Solution Depth: in the subcutaneous layer Percentage of wound debrided: 100 Instrument Used: #15 blade Tissue Removed: Fibrous, devitalized subcutaneous, biofilm, slough Severity: Fat Layer Exposed Amount of bleeding with debridement: Mild Bleeding Controlled with: Pressure Patient tolerated procedure well Assessment/Plan Active Problems Type 2 diabetes mellitus with diabetic polyneuropathy (Acute) Chronic ulcer of left foot with fat layer exposed (Chronic) Hallux limitus of left foot (Chronic) Rheumatoid arthritis (Chronic) Delayed wound healing (Chronic) Assessment: Sub-first metatarsal head ulcer left foot. infection left foot. Diabetes. Delayed healing. Rheumatoid arthritis. Cancer undergoing current therapy. Hallux limitus left. Malnutrition suspected Plan: I reviewed and discussed his care plan. Serial x-ray films and laboratory tests will be needed next month or if there is a status change. Will be repeated in a serial monthly manner. I reviewed his noninvasive vascular studies which demonstrated triphasic waveforms, normal CEDRIC and toe brachial indices bilateral. I reviewed his culture results which demonstrated staph, strep, and Pseudomonas. I recommend continued daily Hibiclens wash to the lower extremity including the wound; this is demonstrated today to assist with decolonization which could be impeding healing. I also provided a 14 day supply of Augmentin to address this ; he was advised on safe and proper use. To continue use at this time. Now that capsule muscle tissue is confirmed and the wound margin this is considered a grade 3 diabetic foot ulcer. He would benefit from an infectious disease evaluation and will try to coordinate this for next week while he is at the wound center. Also recommended hyperbaric oxygen therapy to optimize his wound healing potential. Education was provided today we discussed the indications, benefits, risks, anticipated length and commitment associated with the treatment option as well as the safety screening process. He elects to hold off on the screening testing at this time. He is concerned he will interrupt his treatment when he traveled to [place]. We offered to arrange for him to follow-up at a [facility]ics center while he is in [place] and he defers. He will give this some more thought over the next week and will follow up with him at this time. He changed to a collagen dressing (saman) and likely advanced wound care product such as epi-fix will be considered upon preauthorization and healing response. Strict offloading was recommended. I recommend continuing the forefoot wedge offloading shoe. To avoid barefoot walking at home. I recommended continuous nutritional optimization to promote healing. A prescription for David nutritional supplement was also provided a previous visit. Return to clinic in 1 week or call sooner if he has any questions or concerns. I answered all of his questions.
[2017-05-25 14:09] VITALS: BP 148/72; PULSE 82; RESP 18; TEMP 36.3
--- NOTE | 2017-05-25 21:35 | PN.PCM_ITS ---
(1) Chronic ulcer of left foot with fat layer exposed Status: Chronic Current Visit: Yes Code(s): L97.522 - Non-pressure chronic ulcer of other part of left foot with fat layer exposed (2) Type 2 diabetes mellitus with diabetic polyneuropathy Status: Chronic Current Visit: Yes Code(s): E11.42 - Type 2 diabetes mellitus with diabetic polyneuropathy (3) Hallux limitus of left foot Status: Chronic Current Visit: Yes Code(s): M20.5X2 - Other deformities of toe(s) (acquired), left foot (4) Rheumatoid arthritis Status: Chronic Current Visit: Yes Code(s): M06.9 - Rheumatoid arthritis, unspecified (5) Delayed wound healing Status: Chronic Current Visit: Yes Code(s): T14.8XXD - Other injury of unspecified body region, subsequent encounter (6) Malnutrition Status: Suspected Current Visit: Yes Code(s): E46 - Unspecified protein- calorie malnutrition Type of Wound Date of Service: 05/25/17 Chief Complaint: Left foot ulcer History of Wound: This 61-year-old male presents today for chronic left foot ulcer with an onset of 10/30. He denies fever, chill, nausea, vomiting, or foot pain. He is compliant with an offloading forefoot wedge shoe. He continues on antibiotics as recommended. He is planning to travel to [place] for 1 month in June. He is still considering if he is amenable to go through with hyperbaric oxygen therapy screening and treatment. Progress of Wound: Stable - Physical Exam Vital Signs Temp Pulse Resp BP 97.3 F L 82 18 148/72 H 05/25/17 14:09 05/25/17 14:09 05/25/17 14:09 05/25/17 14:09 General: Alert, Oriented x3, Cooperative Extremities: No cyanosis, Capillary Refill Less than 3 Seconds, No Calf Tenderness - Negative Mingo and Garcia bilateral, Diminished Peripheral Pulses, Edema - Mild Skin: Ulcer/ Wound - No maceration, no erythema, no streaking, no odor, no purulence, no exposed bone. Deeper capsular structure is noted which is likely part of the sesamoid apparatus. There is devitalized fibrous and granular tissue and significant callus formation periwound noted. His atrophic skin is also noted. Wound Measurements and Assessment WC - Nurse 1 - General Ulcer Measurement Start: 05/18/17 14:04 Freq: Status: Active Protocol: Activity Type Activity Date Activity User E-Sign Co-Sign Detail Recorded Client Recorded Date Recorded By Document 05/25/17 14:09 [email or web address] [id number] 05/25/17 14:16 DL 05/25/17 14:09 Wound Center Nurse 1 [Ulcer Assessment Protocol: WC.WD.LOC] #3 Left: 1st Metatarsal Head - Plantar -Current Size (cm) - Length 0.8 -Current Size (cm) - Width 0.8 -Current Size (cm) - Depth 0.4 -Total Square Cm 0.64 -Photo Taken No -Undermining/Tunneling Starts (O' 12 clock) -Undermining/Tunneling Ends (O'clock) 6 -Maximum Distance (cm) 0.4 -Exudate Amt Small (1-33%) -Exudate Type Serosanguineous -Wound Margin Thickened -Granulation Amt None Present (0 %) -Necrosis Amt Large (67-100%) -Necrotic Tissue Type Adherent Slough -Structure Exposed N/A -Texture (Mar-wound Skin Appearance) Callus -Moisture (Mar-wound Skin Appearance Dry/Scaly ) -Color (Mar-wound Skin Appearance) No Abnormality -Temperature (Mar-wound Skin No Abnormality Appearance) (Pt Warm) -Ulcer Cleansing Rinsed/ Irrigated with Saline -Foul Odor after Cleansing No -Anesthetic Used 4% Lidocaine Solution - Nurse 2 - General Ulcer CM Notes Start: 05/18/17 14:04 Freq: Status: Active Protocol: Activity Type Activity Date Activity User E-Sign Co-Sign Detail Recorded Client Recorded Date Recorded By Document 05/25/17 14:52 IDALIA [id number] 05/25/17 15:01 IDALIA 05/25/17 14:52 Wound Center Nurse 2 [Procedure/Treatment] -Time 14:52 -Correct Patient Yes -Correct Side, Site, Position Yes -Correct Procedure Yes -Procedure Performed Yes -Type of Procedure Debridement -Clinical Debridement Subcutaneous -Post Debridement Size (cm) - Length 1.6 -Post Debridement Size (cm) - Width 2.1 -Post Debridement Size (cm) - Depth 0.3 -Total Square Cm 3.36 -Wound/Ulcer Outcome Not Healed -Ulcer Cleansing Rinsed/ Irrigated with Saline -Foul Odor after Cleansing No -Bioengineered Tissue No -Cetacaine [place] No -Bleeding Controlled with Pressure -Treatment Response Procedure Tolerated Well [See Physician Procedure note for Specifics] Pain Scale: 0-10 Numeric [Pain] -Is Patient Pain Free? Yes Musculoskeletal: No Tenderness to Palpation of Joints or Extremities, Muscle Wasting, - - Lack of motion at first metatarsophalangeal joint Neurological: - - Lack of epicritic sensation light touch bilateral Psych/Mental Status: Normal Affect, Appropriate Debridement Note Post-Debridement Measurements/Treatment WC - Nurse 2 - General Ulcer CM Notes Start: 05/18/17 14:04 Freq: Status: Active Protocol: Activity Type Activity Date Activity User E-Sign Co-Sign Detail Recorded Client Recorded Date Recorded By Document 05/18/17 14:22 [id number] 05/18/17 14:24 Document 05/25/17 14:52 [id number] 05/25/17 15:01 05/18/17 05/25/17 14:22 14:52 Wound Center Nurse 2 #3 Left: 1st Metatarsal Head - Plantar -Time 14:24 14:52 -Correct Patient Yes Yes -Correct Side, Site, Position Yes Yes -Correct Procedure Yes Yes -Procedure Performed Yes Yes -Type of Procedure Debridement Debridement -Clinical Debridement Subcutaneous Subcutaneous -Post Debridement Size (cm) - Length 1.1 1.6 -Post Debridement Size (cm) - Width 1.1 2.1 -Post Debridement Size (cm) - Depth 1.0 0.3 -Total Square Cm 1.21 3.36 -Wound/Ulcer Outcome Not Healed Not Healed -Ulcer Cleansing Rinsed/ Rinsed/ Irrigated with Irrigated with Saline Saline -Foul Odor after Cleansing No No -Bioengineered Tissue No No -Cetacaine [place] No No -Bleeding Controlled with Pressure Pressure -Treatment Response Procedure Procedure Tolerated Well Tolerated Well Pain Scale: 0-10 Numeric Is Patient Pain Free? Yes Yes Wound debrided: Sub-first metatarsal head Laterality: Left Wound Grade/Stage: Grade 1 Type of Debridement: Excisional debridement Anesthesia Used: 4% Lidocaine Solution Depth: in the subcutaneous layer Percentage of wound debrided: 100 Instrument Used: #15 blade Tissue Removed: fibrous, devitalized subcutaneous, biofilm, slough Severity: Fat Layer Exposed Amount of bleeding with debridement: Mild Bleeding Controlled with: Pressure Patient tolerated procedure well Assessment/Plan Active Problems Type 2 diabetes mellitus with diabetic polyneuropathy (Chronic) Chronic ulcer of left foot with fat layer exposed (Chronic) Hallux limitus of left foot (Chronic) Rheumatoid arthritis (Chronic) Delayed wound healing (Chronic) Assessment: Sub-first metatarsal head ulcer left foot. infection left foot. Diabetes. Delayed healing. Rheumatoid arthritis. Cancer undergoing current therapy. Hallux limitus left. Malnutrition suspected Plan: I reviewed and discussed his care plan. Debridement was performed as noted in the clinical panel. I reviewed his noninvasive vascular studies which demonstrated triphasic waveforms, normal CEDRIC and toe brachial indices bilateral. I reviewed his culture results which demonstrated staph, strep, and Pseudomonas. I recommend continued daily Hibiclens wash to the lower extremity including the wound; this is demonstrated today to assist with decolonization which could be impeding healing. I also provided a 14 day supply of Augmentin to address this ; he was advised on safe and proper use. This was completed. Now that capsule muscle tissue is confirmed and the wound margin this is considered a grade 3 diabetic foot ulcer. He demonstrates local clinical improvement. I also recommended hyperbaric oxygen therapy to optimize his wound healing potential. Education was provided today we discussed the indications, benefits, risks, anticipated length and commitment associated with the treatment option as well as the safety screening process. He elects to hold off on the screening testing at this time. He is concerned he will interrupt his treatment when he traveled to [place]. I still encouraged him to go through the screening process before traveling to [place] if he is committed to attending the sessions when he returns. We also offered to arrange for him to follow-up at a healogics center while he is in [place] and he defers. He changed to a collagen dressing (saman). He was not preapproved for epi-fix, amniotic cord cell derived advanced wound care product at this time. I recommend puraply, a collagen and antimicrobial dressing to aid in wound healing. The preauthorization is pending. Strict offloading was recommended. I recommend continuing the forefoot wedge offloading shoe. To avoid barefoot walking at home. I recommended continuous nutritional optimization to promote healing. Return to clinic in 1 week or call sooner if he has any questions or concerns. I answered all of his questions.
[2017-06-01 14:45] VITALS: BP 124/72; PULSE 70; RESP 18; TEMP 35.5
--- NOTE | 2017-06-01 21:25 | PCM.WC.PN ---
(1) Chronic ulcer of left foot with fat layer exposed Status: Chronic Code(s): L97.522 - Non-pressure chronic ulcer of other part of left foot with fat layer exposed (2) Type 2 diabetes mellitus with diabetic polyneuropathy Status: Chronic Code(s): E11.42 - Type 2 diabetes mellitus with diabetic polyneuropathy (3) Hallux limitus of left foot Status: Chronic Code(s): M20.5X2 - Other deformities of toe(s) (acquired), left foot (4) Rheumatoid arthritis Status: Chronic Code(s): M06.9 - Rheumatoid arthritis, unspecified (5) Delayed wound healing Status: Chronic Code(s): T14.8XXD - Other injury of unspecified body region, subsequent encounter (6) Malnutrition Status: Suspected Code(s): E46 - Unspecified protein-calorie malnutrition Type of Wound Date of Service: 06/04/17 Chief Complaint: Left foot ulcer History of Wound: This 61-year-old male presents today for chronic left foot ulcer with an onset of 10/30. He denies fever, chill, nausea, vomiting, or foot pain. He is compliant with an offloading forefoot wedge shoe. He completed antibiotics as recommended without any knows side effects. He is planning to travel to [place] for 1 month in June. He would like to proceed with hyperbaric oxygen therapy when he returns and is now amendable to start the screening process. It is noted he is actively treated for prostate cancer at this time and is not on chemotherapy or radiation. Progress of Wound: Stable - Physical Exam Vital Signs Temp Pulse Resp BP 96 F L 70 18 124/72 H 06/01/17 14:45 06/01/17 14:45 06/01/17 14:45 06/01/17 14:45 General: Alert, Oriented x3, Cooperative Extremities: No cyanosis, Capillary Refill Less than 3 Seconds, No Calf Tenderness - Negative Mingo and Garcia sign bilateral, Diminished Peripheral Pulses, Edema - Mild, - - No passive motion available at the first metatarsophalangeal joint consistent with hallux rigidus Skin: Ulcer/ Wound - No purulence, no maceration, no erythema, no odor, no necrosis. There is fat layer and partial capsular layer exposed. There is no visualized or probing to the sesamoid bones Wound Measurements and Assessment WC - Nurse 1 - General Ulcer Measurement Start: 05/18/17 14:04 Freq: Status: Active Protocol: Activity Type Activity Date Activity User E-Sign Co-Sign Detail Recorded Client Recorded Date Recorded By Document 06/01/17 14:45 RB [id number] 06/01/17 14:50 RB 06/01/17 14:45 Wound Center Nurse 1 [Ulcer Assessment Protocol: WC.WD.LOC] #3 Left: 1st Metatarsal Head - Plantar -Combined with other wound No -Current Size (cm) - Length 1.3 -Current Size (cm) - Width 1.5 -Current Size (cm) - Depth 0.7 -Total Square Cm 1.95 -Photo Taken No -Tunneling No -Undermining/Tunneling No -Circular Undermining No -Classification - Stark Grading ( Grade 2 Diabetic Ulcer) -Exudate Amt Small (1-33%) -Exudate Type Serosanguineous -Wound Margin Fibrotic Scar, Thickened Scar -Granulation Amt Medium (34-66%) -Granulation Quality [place] -Slough/Fibrin Yes -Necrosis Amt Small (1-33%) -Necrotic Tissue Type Adherent Slough -Structure Exposed N/A -Texture (Mar-wound Skin Appearance) Callus -Moisture (Mar-wound Skin Appearance Assessed ) -Color (Mar-wound Skin Appearance) Assessed -Temperature (Mar-wound Skin No Abnormality Appearance) (Pt Warm) -Tenderness on Palpation (Mar-wound No Skin Appearance) -Ulcer Cleansing Rinsed/ Irrigated with Saline -Foul Odor after Cleansing No -Anesthetic Used 4% Lidocaine Solution - Nurse 2 - General Ulcer CM Notes Start: 05/18/17 14:04 Freq: Status: Active Protocol: Activity Type Activity Date Activity User E-Sign Co-Sign Detail Recorded Client Recorded Date Recorded By Document 06/01/17 15:32 TM [id number] 06/01/17 15:35 06/01/17 15:32 Wound Center Nurse 2 [Procedure/Treatment] -Time 15:33 -Correct Patient Yes -Correct Side, Site, Position Yes -Correct Procedure Yes -Procedure Performed Yes -Type of Procedure Debridement -Clinical Debridement Subcutaneous -Post Debridement Size (cm) - Length 1.4 -Post Debridement Size (cm) - Width 1.6 -Post Debridement Size (cm) - Depth 0.7 -Total Square Cm 2.24 -Wound/Ulcer Outcome Not Healed -Ulcer Cleansing Rinsed/ Irrigated with Saline -Foul Odor after Cleansing No -Bioengineered Tissue No -Cetacaine [place] No -Topical Lidocaine (%) 5 -Bleeding Controlled with Pressure -Treatment Response Procedure Tolerated Well [See Physician Procedure note for Specifics] Pain Scale: 0-10 Numeric [Pain] -Is Patient Pain Free? Yes Musculoskeletal: No Tenderness to Palpation of Joints or Extremities, Muscle Wasting, Tenderness - No pain with manipulation Neurological: - - Lack of epicritic sensation to light touch Psych/Mental Status: Normal Affect, Appropriate Debridement Note Post-Debridement Measurements/Treatment WC - Nurse 2 - General Ulcer CM Notes Start: 05/18/17 14:04 Freq: Status: Active Protocol: Activity Type Activity Date Activity User E-Sign Co-Sign Detail Recorded Client Recorded Date Recorded By Document 05/18/17 14:22 [id number] 05/18/17 14:24 Document 05/25/17 14:52 [id number] 05/25/17 15:01 Document 06/01/17 15:32 [id number] 06/01/17 15:35 05/18/17 05/25/17 06/01/17 14:22 14:52 15:32 Wound Center Nurse 2 #3 Left: 1st Metatarsal Head - Plantar -Time 14:24 14:52 15:33 -Correct Patient Yes Yes Yes -Correct Side, Site, Position Yes Yes Yes -Correct Procedure Yes Yes Yes -Procedure Performed Yes Yes Yes -Type of Procedure Debridement Debridement Debridement -Clinical Debridement Subcutaneous Subcutaneous Subcutaneous -Post Debridement Size (cm) - Length 1.1 1.6 1.4 -Post Debridement Size (cm) - Width 1.1 2.1 1.6 -Post Debridement Size (cm) - Depth 1.0 0.3 0.7 -Total Square Cm 1.21 3.36 2.24 -Wound/Ulcer Outcome Not Healed Not Healed Not Healed -Ulcer Cleansing Rinsed/ Rinsed/ Rinsed/ Irrigated with Irrigated with Irrigated with Saline Saline Saline -Foul Odor after Cleansing No No No -Bioengineered Tissue No No No -Cetacaine [place] No No No -Topical Lidocaine (%) 5 -Bleeding Controlled with Pressure Pressure Pressure -Treatment Response Procedure Procedure Procedure Tolerated Well Tolerated Well Tolerated Well Pain Scale: 0-10 Numeric Is Patient Pain Free? Yes Yes Yes Wound debrided: Sub-first metatarsal head Laterality: Left Wound Grade/Stage: Grade 3 Type of Debridement: Excisional debridement Anesthesia Used: 4% Lidocaine Solution Depth: in the subcutaneous layer Percentage of wound debrided: 100 Instrument Used: 5mm curette Tissue Removed: Fibrous, devitalized subcutaneous, biofilm, slough Severity: Fat Layer Exposed Amount of bleeding with debridement: Mild Bleeding Controlled with: Pressure Patient tolerated procedure well Assessment/Plan Assessment: Sub-first metatarsal head ulcer left foot. infection left foot -improving. Diabetes. Delayed healing. Rheumatoid arthritis. Cancer undergoing current therapy (prostate). Hallux limitus left. Malnutrition suspected Plan: I reviewed and discussed his care plan. Debridement was performed as noted in the clinical panel. I reviewed his noninvasive vascular studies which demonstrated triphasic waveforms, normal CEDRIC and toe brachial indices bilateral. I reviewed his culture results which demonstrated staph, strep, and Pseudomonas. He continues with daily Hibiclens wash to the lower extremity including the wound; this is demonstrated today to assist with decolonization which could be impeding healing. I also provided a 14 day supply of Augmentin to address this and he completed this as advised. This was completed. Now that capsule muscle tissue is confirmed and the wound margin this is considered a grade 3 diabetic foot ulcer. He demonstrates local clinical improvement. I also recommended hyperbaric oxygen therapy to optimize his wound healing potential. Education was provided today we discussed the indications, benefits, risks, anticipated length and commitment associated with the treatment option as well as the safety screening process. He elects to proceed with the screening and clearance process at this time. An EKG, chest xray was ordered. A consultation for clearance will be initiated once these tests are completed and reviewed. He changed to a collagen dressing (saman). He was not preapproved for epi-fix, amniotic cord cell derived advanced wound care product at this time or puraply, a collagen and antimicrobial dressing to aid in wound healing. Strict offloading was recommended. I recommend continuing the forefoot wedge offloading shoe. To avoid barefoot walking at home. I recommended continuous nutritional optimization to promote healing. Return to clinic in 1 week or call sooner if he has any questions or concerns. I answered all of his questions.
[2017-06-08 14:20] VITALS: BP 144/74; PULSE 88; RESP 16; TEMP 36.3
--- NOTE | 2017-06-08 23:27 | PCM.WC.PN ---
(1) Chronic ulcer of left foot with fat layer exposed Status: Chronic Code(s): L97.522 - Non-pressure chronic ulcer of other part of left foot with fat layer exposed (2) Type 2 diabetes mellitus with diabetic polyneuropathy Status: Chronic Code(s): E11.42 - Type 2 diabetes mellitus with diabetic polyneuropathy (3) Hallux limitus of left foot Status: Chronic Code(s): M20.5X2 - Other deformities of toe(s) (acquired), left foot (4) Rheumatoid arthritis Status: Chronic Code(s): M06.9 - Rheumatoid arthritis, unspecified (5) Delayed wound healing Status: Chronic Code(s): T14.8XXD - Other injury of unspecified body region, subsequent encounter (6) Malnutrition Status: Suspected Code(s): E46 - Unspecified protein-calorie malnutrition Type of Wound Date of Service: 06/11/17 Chief Complaint: Left foot ulcer History of Wound: This 61-year-old male presents today for chronic left foot ulcer with an onset of 10/30. He denies fever, chill, nausea, vomiting, or foot pain. He is compliant with an offloading forefoot wedge shoe. He is planning to travel to [place] for 1 month in June. He would like to proceed with hyperbaric oxygen therapy when he returns and is now amendable to start the screening process. It is noted he is actively treated for prostate cancer at this time and is not on chemotherapy or radiation. He relates his cancer treatment is going poorly and he would like to enjoy his time. THus he elects not to proceed with hyperbaric oxygen therapy at this time. Progress of Wound: Stable - Physical Exam Vital Signs Temp Pulse Resp BP 97.3 F L 88 16 144/74 H 06/08/17 14:20 06/08/17 14:20 06/08/17 14:20 06/08/17 14:20 General: Alert, Oriented x3, Cooperative Extremities: No cyanosis, Capillary Refill Less than 3 Seconds, No Calf Tenderness, Diminished Peripheral Pulses Skin: Ulcer/ Wound - no purulence, no erythema, no infection, no necrosis, no probe to bone., - - atrophic skin noted Wound Measurements and Assessment WC - Nurse 1 - General Ulcer Measurement Start: 05/18/17 14:04 Freq: Status: Active Protocol: Activity Type Activity Date Activity User E-Sign Co-Sign Detail Recorded Client Recorded Date Recorded By Document 06/08/17 14:20 [id number] 06/08/17 14:22 06/08/17 14:20 Wound Center Nurse 1 [Ulcer Assessment Protocol: KAVITA.WD.LOC] #3 Left: 1st Metatarsal Head - Plantar -Combined with other wound No -Current Size (cm) - Length 1.5 -Current Size (cm) - Width 1.3 -Current Size (cm) - Depth 1.0 -Total Square Cm 1.95 -Photo Taken Yes -Epithelialization None Present -Tunneling No -Undermining/Tunneling No -Circular Undermining No -Exudate Amt Small (1-33%) -Exudate Type Serosanguineous -Wound Margin Flat & Intact -Granulation Amt Large (67-100%) -Granulation Quality Anita -Slough/Fibrin Yes -Necrosis Amt Small (1-33%) -Necrotic Tissue Type Adherent Slough -Structure Exposed N/A -Texture (Mar-wound Skin Appearance) Assessed Callus -Moisture (Mar-wound Skin Appearance Assessed ) Dry/Scaly -Color (Mar-wound Skin Appearance) Assessed -Temperature (Mar-wound Skin No Abnormality Appearance) (Pt Warm) -Tenderness on Palpation (Mar-wound No Skin Appearance) -Ulcer Cleansing Rinsed/ Irrigated with Saline -Foul Odor after Cleansing No -Anesthetic Used 4% Lidocaine Solution [Edema Assessment] -Lower Limb Edema Present NA - Nurse 2 - General Ulcer CM Notes Start: 05/18/17 14:04 Freq: Status: Active Protocol: Activity Type Activity Date Activity User E-Sign Co-Sign Detail Recorded Client Recorded Date Recorded By Document 06/08/17 14:36 [id number] 06/08/17 14:37 06/08/17 14:36 Wound Center Nurse 2 [Procedure/Treatment] #3 Left: 1st Metatarsal Head - Plantar -Time 14:36 -Correct Patient Yes -Correct Side, Site, Position Yes -Correct Procedure Yes -Procedure Performed Yes -Type of Procedure Debridement -Clinical Debridement Subcutaneous -Post Debridement Size (cm) - Length 1.6 -Post Debridement Size (cm) - Width 1.3 -Post Debridement Size (cm) - Depth 1.1 -Total Square Cm 2.08 -Wound/Ulcer Outcome Not Healed -Ulcer Cleansing Rinsed/ Irrigated with Saline -Foul Odor after Cleansing No -Bioengineered Tissue No -Cetacaine [place] No -Bleeding Controlled with Pressure -Treatment Response Procedure Tolerated Well [See Physician Procedure note for Specifics] Pain Scale: 0-10 Numeric [Pain] -Is Patient Pain Free? Yes Musculoskeletal: No Tenderness to Palpation of Joints or Extremities, Muscle Wasting, - - lack of 1st metatarsal phalangeal joint range of motion. Neurological: - Psych/Mental Status: Normal Affect - lack of epicritic sensation via light touch, Appropriate Debridement Note Post-Debridement Measurements/Treatment WC - Nurse 2 - General Ulcer CM Notes Start: 05/18/17 14:04 Freq: Status: Active Protocol: Activity Type Activity Date Activity User E-Sign Co-Sign Detail Recorded Client Recorded Date Recorded By Document 05/18/17 14:22 [id number] 05/18/17 14:24 Document 05/25/17 14:52 [id number] 05/25/17 15:01 Document 06/01/17 15:32 [id number] 06/01/17 15:35 Document 06/08/17 14:36 [id number] 06/08/17 14:37 05/18/17 05/25/17 06/01/17 14:22 14:52 15:32 Wound Center Nurse 2 #3 Left: 1st Metatarsal Head - Plantar -Time 14:24 14:52 15:33 -Correct Patient Yes Yes Yes -Correct Side, Site, Position Yes Yes Yes -Correct Procedure Yes Yes Yes -Procedure Performed Yes Yes Yes -Type of Procedure Debridement Debridement Debridement -Clinical Debridement Subcutaneous Subcutaneous Subcutaneous -Post Debridement Size (cm) - Length 1.1 1.6 1.4 -Post Debridement Size (cm) - Width 1.1 2.1 1.6 -Post Debridement Size (cm) - Depth 1.0 0.3 0.7 -Total Square Cm 1.21 3.36 2.24 -Wound/Ulcer Outcome Not Healed Not Healed Not Healed -Ulcer Cleansing Rinsed/ Rinsed/ Rinsed/ Irrigated with Irrigated with Irrigated with Saline Saline Saline -Foul Odor after Cleansing No No No -Bioengineered Tissue No No No -Cetacaine [place] No No No -Topical Lidocaine (%) 5 -Bleeding Controlled with Pressure Pressure Pressure -Treatment Response Procedure Procedure Procedure Tolerated Well Tolerated Well Tolerated Well Pain Scale: 0-10 Numeric Is Patient Pain Free? Yes Yes Yes 06/08/17 14:36 Wound Center Nurse 2 #3 Left: 1st Metatarsal Head - Plantar -Time 14:36 -Correct Patient Yes -Correct Side, Site, Position Yes -Correct Procedure Yes -Procedure Performed Yes -Type of Procedure Debridement -Clinical Debridement Subcutaneous -Post Debridement Size (cm) - Length 1.6 -Post Debridement Size (cm) - Width 1.3 -Post Debridement Size (cm) - Depth 1.1 -Total Square Cm 2.08 -Wound/Ulcer Outcome Not Healed -Ulcer Cleansing Rinsed/ Irrigated with Saline -Foul Odor after Cleansing No -Bioengineered Tissue No -Cetacaine [place] No -Topical Lidocaine (%) -Bleeding Controlled with Pressure -Treatment Response Procedure Tolerated Well Pain Scale: 0-10 Numeric Is Patient Pain Free? Yes Wound debrided: sub 1st metatarsal head Laterality: Left Wound Grade/Stage: grade 3 Type of Debridement: Excisional debridement Anesthesia Used: 4% Lidocaine Solution Depth: in the subcutaneous layer Percentage of wound debrided: 100 Instrument Used: 5mm curette Tissue Removed: Fibrous, devitalized subcutaneous, biofilm, slough Severity: Fat Layer Exposed Amount of bleeding with debridement: Mild Bleeding Controlled with: Pressure Patient tolerated procedure well Assessment/Plan Assessment: Sub-first metatarsal head ulcer left foot. infection left foot -improving. Diabetes. Delayed healing. Rheumatoid arthritis. Cancer undergoing current therapy (prostate). Hallux limitus left. Malnutrition suspected Plan: I reviewed and discussed his care plan. Debridement was performed as noted in the clinical panel. I reviewed his noninvasive vascular studies which demonstrated triphasic waveforms, normal CEDRIC and toe brachial indices bilateral. I also recommended hyperbaric oxygen therapy to optimize his wound healing potential and he defers at this time. He continues with a collagen dressing (saman). I recommend continuing the forefoot wedge offloading shoe. To avoid barefoot walking at home. I recommended continuous nutritional optimization to promote healing. Return to clinic in 1 week or call sooner if he has any questions or concerns. I answered all of his questions. He relates he will return to clinic when he returns from [place].
== END 2017-06-15 23:59 ==
LOC: WC 14:30
PROVIDERS: Family Provider Family Medicine; PCP Family Medicine; Visit Provider Podiatrist
DX: E11.621 Type 2 diabetes mellitus with foot ulcer (principal); E11.42 Type 2 diabetes mellitus with diabetic polyneuropathy; L97.522 Non-pressure chronic ulcer of other part of left foot with fat layer exposed; L08.9 Local infection of the skin and subcutaneous tissue, unspecified; M20.5X2 Other deformities of toe(s) (acquired), left foot; M06.9 Rheumatoid arthritis, unspecified; C61 Malignant neoplasm of prostate
CPT/HCPCS: 11042